=== PATIENT | male | born 1970 | race Caucasian/White ===

== ENCOUNTER → 2020-05-27 09:39 | Outpatient (BNVA) | payer OTHER, SELFPAY | PROVIDERS: Family Provider Family Medicine; Visit Provider Surgery | DX: Z20.828 Contact with and (suspected) exposure to other viral communicable diseases (principal) | CPT/HCPCS: 87635 ==

== ENCOUNTER 2020-06-02 06:34 | Day surgery (SDC) | payer OTHER, SELFPAY ==
[2020-05-31 13:21] VITALS: BMI 34.0
--- NOTE | 2020-06-02 06:44 | W.PM.OPSUD ---
Surgery/Procedure H&P Update DATE OF PROCEDURE: June 02, 2020 DATE H&P PERFORMED: 05/10/20 H&P UPDATE INFORMATION: No changes to prior documentation PLANNED PROCEDURE: Operation Date: 06/02/20 07:30 Proposed Procedures p Colonoscopy 91166 Z12.11(Not Applicable) - Juan Willett MD
[2020-06-02 06:48] VITALS: BP 160/98; PULSE 66; RESP 16; TEMP 36.3; O2SAT 97
--- NOTE | 2020-06-02 06:52 | ANES.PREANE2 ---
Documented by User: Hua Castillo CRNA 06/02/20 06:56 Pre-Anesthetic Assessment Pre-Anesthetic Assessment: Height/Weight: Height 1.75 m Weight 104.326 kg Preop Diagnosis: screening Proposed Procedure: Operation Date: 06/02/20 07:30 Proposed Procedures p Colonoscopy 18699 Z12.11(Not Applicable) - Juan Willett MD Familial anesthetic complications: none Was Beta Mono taken within 24 hours: N/A Was Clonidine taken within 24 hours: N/A Social: Social History: Alcohol (infrequent) and No tobacco Exam: Pre-Anes Outpt Exam: alert, oriented x 3, clear to auscultation bilaterally and regular rate & rhythm Airway: Submandibular: WNL Cervical ROM: WNL MP: 2 Dentition: Full Pulmonary: Pulmonary: None reported CV/HEM: CV/HEM: HTN : : None reported Hepatic: Hepatic: None reported GI: GI: None reported Metabolic: Metabolic: Morbid obesity Musc/skel: Musc/skel: None reported Neuropsych: Neuropsych: Depression Anesthetic Plan: ASA status: 2 Anesthesia: MAC Risk of > 500 ml blood loss (7ml/kg in children): No Data Anesthesia Cardiac Studies: No Data to Display Documented by User: Dominick Angel MD 06/02/20 07:19 Data Anesthesia Cardiac Studies: No Data to Display
[2020-06-02] MEDS: sodium chloride 0.9% 1,000 ML 30 ML IV (07:06)
[2020-06-02 07:38] VITALS: BP 132/76; PULSE 74; RESP 18; TEMP 36.7; O2SAT 97
--- NOTE | 2020-06-02 07:39 | ANE.PACU2 ---
Inpatient post-anesthesia follow up: Airway intact: Yes Vital signs: Temperature 98.0 F Pulse Rate 74 Respiratory Rate 18 Blood Pressure 132/76 Pulse Oximetry 97 Oxygen Delivery Me thod Room Air Oxygen Flow Rate Fraction of Inspir ed Oxygen Hydration adequate: Yes Nausea and vomiting: No Pain level: 1 Mental status: Baseline
[2020-06-02 08:04] VITALS: BP 128/88; PULSE 60; RESP 18; O2SAT 98
== END 2020-06-02 08:15 | disposition home or self-care (01) ==
PROVIDERS: PCP Family Medicine; Visit Provider Surgery
PROC: 0DJD8ZZ Inspection of Lower Intestinal Tract, Via Natural or Artificial Opening Endoscopic (ICD-10-PCS; CPT 45378; principal; 2020-06-02 07:30)
DX: Z12.11 Encounter for screening for malignant neoplasm of colon (principal); K64.8 Other hemorrhoids; I10 Essential (primary) hypertension; E66.01 Morbid (severe) obesity due to excess calories; Z68.34 Body mass index [BMI] 34.0-34.9, adult; F32.9 Major depressive disorder, single episode, unspecified
CPT/HCPCS: 12345; 45378; 96360; J2704; J7030

== ENCOUNTER → 2022-07-17 10:03 | Outpatient (BNVA) | payer OTHER, SELFPAY | PROVIDERS: PCP Family Medicine; Visit Provider Family Medicine | DX: I10 Essential (primary) hypertension (principal); Z00.00 Encounter for general adult medical examination without abnormal findings | CPT/HCPCS: 80053; 80061 ==

== ENCOUNTER → 2023-09-17 08:23 | Outpatient (BNVA) | payer OTHER, SELFPAY | PROVIDERS: PCP Family Medicine; Visit Provider Family Medicine | DX: Z00.00 Encounter for general adult medical examination without abnormal findings (principal); I10 Essential (primary) hypertension | CPT/HCPCS: 80053; 80061 ==

== ENCOUNTER → 2024-10-08 11:15 | Outpatient (BNVA) | payer BC, SELFPAY | PROVIDERS: PCP Family Medicine; Visit Provider Family Medicine | DX: Z00.00 Encounter for general adult medical examination without abnormal findings (principal); I10 Essential (primary) hypertension; E78.5 Hyperlipidemia, unspecified | CPT/HCPCS: 80053; 80061 ==